=== PATIENT | female | born 1955 | race Caucasian/White ===

== ENCOUNTER 2019-12-22 00:20 | Outpatient (CLI) | payer OTHER, SELFPAY ==
[2019-12-22 18:11] LABS: SARS-CoV-2 RNA PCR Negative
== END 2019-12-22 00:21 | disposition home or self-care (01) ==
LOC: ANHCOVIDDT 00:20
PROVIDERS: Visit Provider Internal Medicine Cardiovascular Disease
DX: Z01.812 Encounter for preprocedural laboratory examination (principal); Z20.828 Contact with and (suspected) exposure to other viral communicable diseases
CPT/HCPCS: 87635; C9803; U0003

== ENCOUNTER 2019-12-24 05:26 | Day surgery (SDC) | payer OTHER, SELFPAY ==
[2019-12-23 17:43] VITALS: BMI 34.9
[2019-12-24] VITALS (9 sets, daily range): BP systolic 123–163; BP diastolic 71–90; PULSE 70–88; RESP 13–19; TEMP 36.6; O2SAT 93–98
--- NOTE | 2019-12-24 08:00 | SUR.PREOP ---
0730-pt presents to the [facility] for a KIM. Pt has limited Serbian skills but is able to answer all questions appropriately and denies the need for translation which was offered several times. Pt signed consent and states that she is able to comprehend and sign. Questions answered and verbalized understanding. Consent signed. PIV started. Will continue to monitor.
--- NOTE | 2019-12-24 08:56 | P.SEDATION_ITS ---
Moderate Sedation Note-Pt Data Patient Data Diagnosis: History of TIA, intracardiac shunt/PFO Present Complaint: None Procedure to be performed/Plan: Transesophageal echocardiogram Allergies Allergy/AdvReac Type Severity Reaction Status Date / Time No Known Allergies Allergy Unverified 12/23/19 17:26 Home Medications Medication Instructions Recorded Confirmed Type aspirin [Adult Low Dose Aspirin] 81 mg PO DAILY 12/23/19 12/23/19 History atorvastatin 40 mg PO DAILY 12/23/19 12/23/19 History clopidogrel 75 mg PO DAILY 12/23/19 12/23/19 History fluticasone propionate 1 spray INTRANASAL DAILY 12/23/19 12/23/19 History multivitamin 1 cap PO DAILY 12/23/19 12/23/19 History sertraline 50 mg PO DAILY 12/23/19 12/23/19 History Current Medications: Aspirin 81 mg daily Plavix 75 mg daily Atorvastatin 40 mg daily Sertraline 50 mg daily Sedation/Anesthesia: No previous sedation/anesthesia problems (including family history). [facility] Past Medical History Medical History Dyslipidemia TIA (transient ischemic attack) Family History Family History Father Diabetes mellitus Hypertension Patient's father is in good health Sibling Diabetes mellitus Patient's sister is in good health Patient's brother is in good health Family history of cardiovascular disease Mother Patient's mother is in good health Other Family history of heart disease in male family member before age 55 Social History Social History Smoking status: Never smoker Alcohol intake: never Gender identity (if verbalized by the patient): Female Mod Sed Physical Exam Physical Exam Pre Procedural Exam: Normal: Appearance, Eyes, Ears, Nose, Neck (Supple, normal range of motion), Throat (Posterior hypopharynx clear, nonerythematous), Airway (Normal anatomy, no obstruction), Lungs (Clear to auscultation bilaterally), Heart Size, Heart Rate, Heart Rhythm, Neuro Exam, Abdomen, Kidneys, Extremities and Skin Hours since solid foods: 12 Hours since liquid intake: 12 Internal Medicine - PN: Obj Da Vital Signs Vital Signs: Vital Signs - 24 hr 06/19/20 07:55 Temperature 36.6 C Pulse Rate 75 Respiratory Rate 14 Blood Pressure 139/90 Pulse Oximetry 98 ASA Classification/Sedation ASA Classification/Sedation ASA Class: III Emergent: No Risks: Risks, benefits and alternatives explained and patient/family accepted plan for sedation. Patient re-evaluated immediately prior to sedation.
--- NOTE | 2019-12-24 08:56 | WPDHPUPDATE1 ---
History and Physical Update Update Date/Time: 12/24/19 08:56 History and Physical has been reviewed, including an updated exam of the patient. There are NO changes in the patient's condition. Risks, benefits, and alternatives have been discussed and questions answered. Patient agrees to proceed with procedure.
--- NOTE | 2019-12-24 09:26 | WPDTEECHO ---
KIM TransEsophageal Echocardiogram Date of procedure: 12/24/19 Procedure Type: Transesophageal echocardiogram Diagnosis: Recurrent TIA, PFO/ASD Indications: Recurrent TIA Image Quality: Good Findings: Brief history present illness: Patient is a pleasant 64-year-old female with a history of dyslipidemia and recurrent episodes transient altered mental status thought to be secondary to TIA without documented CVA referred for transesophageal echocardiogram for further evaluation for suspicion for PFO/ASD on 2D echocardiogram. There is no documented history of atrial fibrillation and/or atrial flutter. Procedure in detail: After verbal and written informed consent was obtained the patient risks, benefits, and alternatives explained in detail the patient agreed to proceed with the plan of care as outlined above. The patient was evaluated at bedside in the [facility] procedure room. The posterior oropharynx, neck, and jaw angle all within normal limits on examination. Lungs were clear to auscultation. See pre-sedation note for further details The patient was then placed in the appropriate 30 to 45 degree angle supine position at a slight left lateral decubitus position. Patient was monitored throughout the study with telemetry, oxygen saturation, end-tidal CO2 monitoring, blood pressure, heart rate, and respirations. The posterior hypopharynx was then locally anesthetized using repeated administration of Hurricaine spray as well as gargled viscous lidocaine. After local anesthetic of the posterior hypopharynx was achieved and the oral bite block placed, moderate sedation was administered. After confirmation of adequate moderate sedation, the transesophageal echocardiogram probe was advanced through the oral bite block into the posterior hypopharynx and into the esophagus easily and without complication. Multiple, multiplanar echocardiographic images were obtained in multiple standard re- projections. Pulsed wave, continuous-wave, and color-flow Doppler were utilized in conjunction with this study. At the conclusion of the study, the transesophageal echocardiogram probe was removed easily and without complication. The patient tolerated the procedure well without difficulty. Patient was in sinus rhythm throughout the study. Moderate Sedation/Anesthesia administration: Patient reports no prior problems with sedation/anesthesia. Please see pre-sedation noted for physical examination documentation. As noted above, after adequate local anesthesia of the posterior hypopharynx was achieved, a total of 2 mg intravenous Versed and a total of 50 mcg intravenous Fentanyl in multiple divided doses was administered for moderate sedation. Sedation start time was 0905 and end time was 0924 for a total intra-service/procedure face-face time of 19 minutes. Sedation was administered by a qualified/certified observer Chapin Napoles RN under my supervision with intra-procedure [id number] observation and management throughout the entirety of the procedure. There were no other issues or complications and patient tolerated the procedure well. See post-anesthesia documentation. Findings: Left ventricular size and systolic function within normal limits without wall motion abnormalities with ejection fraction of 60%. Right ventricular size and systolic function within normal limits. There is mild biatrial enlargement. Interatrial septum is thin with aneurysmal motion with evidence of left to right shunt with color-flow Doppler and confirming bidirectional shunt with immediate bubble crossing with injection of agitated saline without Valsalva. Mitral valve is anatomically normal with preserved leaflet excursion and mild regurgitation. There is a very small, mobile, thin/filamentous echodensity arising from MV leaflet consistent with torn minor chordae. The tricuspid valve is anatomically normal with normal leaflet excursion with mild regurgitation identified. No mobile elements identified
--- NOTE | 2019-12-24 09:26 | SUR.OPER ---
0924-please see MOD SED sheet for medications given. Thank you!
--- NOTE | 2019-12-24 10:59 | SUR.PHASEII ---
1040-pt given D/C orders and instructions. Questions answered and verbalized understanding. AOx4. PIV removed intact. Taken via wheelchair to waiting vehicle. No distress noted or verbalized at time of departure.
== END 2019-12-24 10:39 | disposition home or self-care (01) ==
PROVIDERS: PCP Family Medicine; Visit Provider Internal Medicine Cardiovascular Disease
PROC: (CPT 93312; principal; 2019-12-24 08:30)
DX: G45.9 Transient cerebral ischemic attack, unspecified (principal); Q21.1 Atrial septal defect; E78.5 Hyperlipidemia, unspecified; Z79.82 Long term (current) use of aspirin; Z79.02 Long term (current) use of antithrombotics/antiplatelets
CPT/HCPCS: 93312; 93320; 93325; J2250; J3010; J7040

== ENCOUNTER 2020-01-10 13:28 | Outpatient (CLI) | payer OTHER, SELFPAY ==
--- NOTE | ~2020-01-10 | MR_ITS ---
EXAMINATION: MR brain/brain stem wo con DATE: 01/10/2020 14:25 INDICATION: Transient cerebral ischemic attack, unspecified. TECHNIQUE: Magnetic resonance imaging (MRI) of the brain and brainstem was performed without intraven ous contrast. Sequences included sagittal and axial T1-weighted FSE, axial diffusion-weighted FS EPI, axial T2*-weighted GRE, axial T2-weighted FLAIR Propeller, and axial T2-weighted Propeller. Apparent diffusion coefficient (ADC) maps were created. COMPARISON: Brain MRI 05/21/2016 FINDINGS: There are scattered areas of nonspecific increased T2-weighted signal intensity in the cere bral white matter, which is within normal limits for the patient's age. There are small old infarcts in the cerebellum bilaterally. There are old infarcts involving the left caudate nucleus. There is no intracranial hemorrhage, acute infarction, or abnormal intracranial mass lesion. The ventricles are normal in size. The orbits are normal. There is mild mucosal thickening in the paranasal sinuses. The mastoid air cells are normal. IMPRESSION: 1. 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 Reviewed, dictated and finalized at location A.
== END 2020-01-10 13:29 | disposition home or self-care (01) ==
PROVIDERS: PCP Family Medicine; Visit Provider Family Medicine
DX: G45.9 Transient cerebral ischemic attack, unspecified (principal); Q21.1 Atrial septal defect
CPT/HCPCS: 70551

== ENCOUNTER → 2021-11-09 10:43 | Outpatient (CLI) | payer OTHER, SELFPAY ==
--- NOTE | ~2021-11-09 | DEXA_ITS ---
Bone Density Report Name: ELIAS SNYDRE Age: 66 Sex: Female Ethnicity: Date of : 1955 Indication: postmenopausal; screening for osteoporosis; Referring Provider: KENDALL SUTHERLAND Study: Bone densitometry was performed. Exam Date: November 09, 2021 Accession number: [id number] Bone Density: Region BMD T-score Z-score Classification AP Spine (L1-L4) 0.883 -1.5 0.2 Osteopenia Femoral Neck (Left) 0.825 -0.2 1.0 Normal Total Hip (Left) 1.065 1.0 1.8 Normal Femoral Neck (Right) 0.816 -0.3 0.9 Normal Total Hip (Right) 1.030 0.7 1.6 Normal Total Hip Mean 1.048 0.9 1.7 Normal World Health Organization criteria for BMD impression classify patients as: Normal (T-score at or above -1.0), Osteopenia (T-score between -1.0 and -2.5), or Osteoporosis (T-score at or below -2.5). 10-year Fracture Risk(1): Major Osteoporotic Fracture 3.5% Hip Fracture 0.1% Reported Risk Factors: [place] (), Neck BMD=0.816, BMI=35.7 (1) FRAX(R) Version 3.08. Fracture probability calculated for an untreated patient. Fracture probability may be lower if the patient has received treatment. Clinical Information Provided by Patient: Has used the following medications: Vitamin D Patient maximum height was 68.0 Menopause Age: 56 No regular weight bearing exercise Onset of menses at age 15 Number of children 4 Impression: The patient has low bone mass, based on the Total Spine T-score. The patient has an estimated ten-year risk of hip fracture of 0.1% and an estimated ten-year risk of major fracture of 3.5%, based on the WHO FRAX algorithm. Discussion: BONE DENSITY IS LOW AT ONE OR MORE SKELETAL SITES. This patient's lowest T-score is low at one or more skeletal sites. It meets the World Health Organization's (WHO) criteria for ?low bone mass? (T-score between -1.0 and -2.5). The patient's 10-year risk of fracture as calculated by FRAX is less than the threshold where pharmacological therapy is recommended by the National Osteoporosis Foundation (NOF). However, all treatment decisions require clinical judgment and consideration of individual patient factors, including patient preferences, comorbidities, previous drug use, risk factors not captured in the FRAX model (e.g., frailty, falls, vitamin D deficiency, increased bone turnover, interval significant decline in bone density) and possible under or overestimation of fracture risk by FRAX. The patient should follow a healthful lifestyle (good nutrition with adequate calcium and vitamin D, and appropriate weight-bearing exercise). Follow-Up: Consider repeating this study in 2 to 3 years to reassess this patient's status, or sooner if there is some new clinical indication. Reported by: ZEINAB on 11/09/2021 11:23:00 AM.
--- NOTE | ~2021-11-09 | MM_ITS ---
EXAMINATION: MM screening jacky BI w donny HISTORY: Screening mammogram TECHNIQUE: Craniocaudal and mediolateral oblique 3-D tomosynthesis images were obtained and synthetic 2-D images were generated. CAD analysis was submitted and interpreted. COMPARISON: , 05/23/2015, 05/19/2014 bilateral screening mammogram examinations BREAST PARENCHYMAL COMPOSITION: There are scattered areas of fibroglandular density. FINDINGS: Scattered bilateral benign calcifications. Small area of fat necrosis in the posterior outer mid right breast. There is no evidence of suspiciou s mass, calcification, or architectural distortion to suggest malignancy in either breast. There has been no suspicious interval change. IMPRESSION: 1. No mammographic evidence of malignancy. 2. Recommend routine screening mammography in one year. BI-RADS Category 2: Benign finding(s). Reviewed, dictated and finalized at location A.
== END ==
PROVIDERS: PCP Family Medicine; Visit Provider Family Medicine
DX: Z12.31 Encounter for screening mammogram for malignant neoplasm of breast (principal); Z78.0 Asymptomatic menopausal state; M85.88 Other specified disorders of bone density and structure, other site
CPT/HCPCS: 77063; 77067; 77080

== ENCOUNTER 2022-01-12 22:04 | Emergency (ER) | payer OTHER, SELFPAY ==
--- NOTE | ~2022-01-12 | XR_ITS ---
EXAMINATION: XR knee RT min 4V DATE: 01/12/2022 22:34 INDICATION: Right knee pain post injury one day prior with audible pop. TECHNIQUE: Anteroposterior, 2 oblique and crosstable lateral views of the right knee were obtained COMPARISON: None. FINDINGS: Alignment is normal. Incompletely visualized antegrade intramedullary harsha fixation at the visualized proximal right tibia with interlocking screw at the proximal metaphysis. No surrounding lucency to rosario ggest loosening or infection. No fracture. At least mild joint space narrowing in the medial and oconnell llofemoral compartments with small marginal osteophytes in all 3 compartments. Severity of joint spac e narrowing can however be underestimated on nonweightbearing imaging. Possible right knee joint effu rosalind but without evident layering lipohemarthrosis. Small enthesophyte at the proximal pole of the pa tella. Subcutaneous varicosities along the medial aspect of the proximal right calf. Soft tissues are otherwise unremarkable. IMPRESSION: 1. Possible small right knee joint effusion with no evident acute osseous abnormality. 2. Mild degenerative changes at the right knee and prior antegrade intramedullary harsha fixation at the right tibia. Reviewed, dictated and finalized at location A. IMPRESSION: 1. Possible small right knee joint effusion with no evident acute osseous abnor mality. 2. Mild degenerative changes at the right knee and prior antegrade intramedulla ry harsha fixation at the right tibia.
[2022-01-12 22:09] VITALS: BP 147/87; PULSE 85; RESP 17; TEMP 36.4; O2SAT 99
--- NOTE | 2022-01-12 22:56 | ED.LOWEXIN ---
HPI - Extremity Injury (Lower) General Chief Complaint: Extremity Injury, Lower Stated Complaint: right knee pain Time Seen by Provider: 01/12/22 22:45 History of Present Illness HPI Narrative: 66-year-old female presented to the emergency room complaining of right knee pain. Patient states last night she twisted her knee while in bed and began experiencing pain to the right side of her knee. Patient states that she is unable to ambulate due to the pain. Describes pain as a sharp stabbing pain that is worse when trying to step and when her foot is twisted from left to right. Has a history of a total knee replacement Related Data Home Medications Medication Instructions Recorded Confirmed aspirin 81 mg tablet,delayed 81 mg PO DAILY 12/23/19 01/04/22 release (Adult Low Dose Aspirin) multivitamin 1 cap PO DAILY 12/23/19 01/04/22 cholecalciferol (vitamin D3) 125 125 mcg PO DAILY 08/24/20 01/04/22 mcg (5,000 unit) capsule calcium carbonate 600 mg calcium 600 mg PO DAILY 01/04/22 01/04/22 (1,500 mg) tablet (Calcium) celecoxib 200 mg capsule (Celebrex) 200 mg PO PRN PRN Pain 01/04/22 01/04/22 Allergies Allergy/AdvReac Type Severity Reaction Status Date / Time No Known Allergies Allergy Verified 01/12/22 22:13 Review of Systems Review of Systems: CONSTITUTIONAL: Denies fever, chills, or sweats. EYES: Denies visual changes, redness, or discharge. ENT: Denies rhinorrhea, congestion, sore throat, or otalgia. CARDIOVASCULAR: Denies chest pain, palpitations, or edema. RESPIRATORY: Denies cough or dyspnea. GASTROINTESTINAL: Denies abdominal pain, nausea, vomiting, or diarrhea. GENITOURINARY: Denies dysuria or hematuria. SKIN: Denies rash or itching. MUSCULOSKELETAL: Reports right knee pain NEUROLOGIC: Denies headache, numbness, dizziness, or weakness. PSYCHIATRIC: Denies anxiety or depression. [facility] Past Medical History Medical History Dyslipidemia MDD (major depressive disorder), recurrent episode, moderate Mixed hyperlipidemia TIA (transient ischemic attack) Family History Family History Father Diabetes mellitus Hypertension Patient's father is in good health Sibling Diabetes mellitus Patient's sister is in good health Patient's brother is in good health Family history of cardiovascular disease Mother Patient's mother is in good health Other Family history of heart disease in male family member before age 55 Social History Social History Social History: Smoking status: Never smoker Second hand tobacco smoke exposure: No Alcohol intake: never Substance use: never Substance use type: does not use Additional occupation/education comments: homemaker Gender identity (if verbalized by the patient): Female Sexual Orientation (if Verbalized by the Patient): Straight or Heterosexual Spiritual care concerns: No Exam Narrative: GENERAL: Well-appearing, well-nourished, no physical limitations, and in no acute distress. HEAD: Normocephalic, atraumatic. EYES: Conjunctivae normal, PERRLA and EOMI. CHEST: Clear to auscultation. No respiratory distress. No wheezes rales or rhonchi. No tenderness. HEART: Regular rate and rhythm. No murmur heard. Normal peripheral pulses. BACK: No CVA tenderness; No cervical/thoracic/lumbar tenderness, step-offs, bony abnormality; FROM EXTREMITIES: Right knee: Tenderness to the anterior lateral aspect, with soft tissue swelling. Unable to evaluate joint laxity due to pain. Positive Irina's test. Neurovascular is intact distally, no patellar tracking, no obvious bony abnormality SKIN: Warm, dry, no rash. No noted wounds NEURO: No focal deficits. Alert and oriented x3. MAEW. CN's II-XI intact bilaterally, normal gait PSYCH: Cooperative. Normal mood and affect. Course Vital Signs
[2022-01-12] MEDS: HYDROcodone/acetaminophen (*CRX) 5-325 MG TABLET 1 TAB PO (23:02)
== END 2022-01-12 23:09 | disposition home or self-care (01) ==
LOC: ANHED 22:57
PROVIDERS: Emergency Provider Nurse Practitioner Family; PCP Family Medicine
DX: S89.91XA Unspecified injury of right lower leg, initial encounter (principal); E78.5 Hyperlipidemia, unspecified; E78.2 Mixed hyperlipidemia; Z86.73 Personal history of transient ischemic attack (TIA), and cerebral infarction without residual deficits; Z79.82 Long term (current) use of aspirin; X50.9XXA Other and unspecified overexertion or strenuous movements or postures, initial encounter
CPT/HCPCS: 73564; 99283; A9270

== ENCOUNTER 2022-03-15 00:29 | Day surgery (SDC) | payer OTHER, SELFPAY ==
[2022-01-04 15:37] VITALS: BMI 32.5
--- NOTE | 2022-01-17 15:28 | WPDANESEPPF ---
Anes - Initial Pre Proc Eval Procedure: Operation Date: 01/18/22 08:30 Proposed Procedures p Screening Colonoscopy - Kelton Butler MD Date/Time: 01/17/22 15:28 Surgeon: Kelton Butler MD Pre Op Diagnosis: neoplasm screening Patient Data Age: 66 Gender: F Height: 1.75 m Weight: 100 kg Allergies Allergy/AdvReac Type Severity Reaction Status Date / Time No Known Allergies Allergy Verified 01/15/22 07:24 Home Medications Medication Instructions Recorded Confirmed Type aspirin 81 mg tablet,delayed 81 mg PO DAILY 12/23/19 01/04/22 History release (Adult Low Dose Aspirin) multivitamin 1 cap PO DAILY 12/23/19 01/04/22 History cholecalciferol (vitamin D3) 125 125 mcg PO DAILY 08/24/20 01/04/22 History mcg (5,000 unit) capsule atorvastatin 40 mg tablet 40 mg PO DAILY #90 tabs 08/17/21 01/04/22 Rx fluticasone propionate 50 1 spray intranasal DAILY #48 grams 08/17/21 01/04/22 Rx mcg/actuation nasal spray,suspension sertraline 50 mg tablet 50 mg PO DAILY #90 tabs 08/17/21 01/04/22 Rx calcium carbonate 600 mg calcium 600 mg PO DAILY 01/04/22 01/04/22 History (1,500 mg) tablet (Calcium) celecoxib 200 mg capsule (Celebrex) 200 mg PO PRN PRN Pain 01/04/22 01/04/22 History prednisone 10 mg tablet See Rx Instructions PO DAILY 12 01/15/22 01/15/22 Rx days #30 tabs Results Review: All pre-operative results and documents have been reviewed as part of the pre-operative evaluation. [facility] Past Medical History Medical History (Updated 01/17/22 @ 15:29 by Tj Brown DO) Anxiety Depression Dyslipidemia MDD (major depressive disorder), recurrent episode, moderate Mixed hyperlipidemia TIA (transient ischemic attack) Surgical History Surgical History (Updated 01/17/22 @ 15:29 by Tj Brown DO) History of cholecystectomy Family History Family History Father Diabetes mellitus Hypertension Patient's father is in good health Sibling Diabetes mellitus Patient's sister is in good health Patient's brother is in good health Family history of cardiovascular disease Mother Patient's mother is in good health Other Family history of heart disease in male family member before age 55 Social History Social History (Updated 01/15/22 @ 07:24 by Kia Reinoso) Social History: Smoking status: Never smoker Second hand tobacco smoke exposure: No Alcohol intake: never Substance use: never Substance use type: does not use Living arrangements: with family Occupation/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 Gender identity (if verbalized by the patient): Female Sexual Orientation (if Verbalized by the Patient): Straight or Heterosexual Spiritual care concerns: No Anes - Eval Final PreProcedure Day of Procedure 01/17/22 15:28 Patient weight: obese Heart: regular rate and rhythm Lungs: clear to auscultation Airway: Mallampati scale class II Neurological: alert and oriented Last oral intake: >/= 8 hours ASA classification: III Emergent: no Anesthetic plan: proceed Anesthesia type and monitoring: general GIVS and standard monitoring Results Review: All pre-operative results and documents have been reviewed as part of the pre-operative evaluation. Informed Consent: The patient's anesthetic plan and its attendant risks and benefits were discussed with the patient/family/POA. Questions were solicited and answers provided to the satisfaction of the patient/family/POA.
--- NOTE | 2022-03-06 11:46 | PC.NURSE ---
Updated pt's daughter Isabel with new date/time and reviewed bowel prep instructions. Daughter states understanding. No changes in health history from previous pre op interview.
[2022-03-15 06:25] VITALS: BP 138/80; PULSE 84; RESP 18; TEMP 36.4; O2SAT 97; BMI 34.7
[2022-03-15] MEDS: LACTATED RINGERS 1,000 ML 150 ML IV CONT (06:35)
--- NOTE | 2022-03-15 07:22 | PM.HPGS ---
History of Present Illness History of Present Illness Consent: Risks, benefits, and alternatives have been discussed and questions answered. Patient agrees to proceed with procedure. Chief complaint: neoplasm screening Narrative: Patricia Yoo is a 66 year old female here for screening colonoscopy, last one over 10 years ago Review of Systems Constitutional: Constitutional: Denies headache(s) and Denies weakness Eyes: Eyes: Denies blurry vision ENT: Reports Normal hearing present, Denies headache(s) and Denies neck pain Cardiovascular: Cardiovascular: Denies chest pain and Denies dyspnea Respiratory: Respiratory: Denies dyspnea Gastrointestinal: Gastrointestinal: Reports no additional gastrointestinal complaints Genitourinary: Genitourinary: Denies dysuria Musculoskeletal: Musculoskeletal: Denies neck pain Integumentary/Breasts: Skin/Breast: Denies dry skin Neurologic: Reports Normal hearing present, Denies headache(s) and Denies weakness Psychiatric: Psychiatric: Denies anxiety Endocrine: Endocrine: Denies change in body appearance Hematologic/Lymphatic: Hematologic/Lymphatic: Denies easy bleeding Allergic/Immunologic: Allergic/Immunologic: Denies urticaria PMFSH Past Medical History Medical History Anxiety Depression Dyslipidemia MDD (major depressive disorder), recurrent episode, moderate Mixed hyperlipidemia TIA (transient ischemic attack) Surgical History Surgical History History of cholecystectomy Family History Family History Father Diabetes mellitus Hypertension Patient's father is in good health Sibling Diabetes mellitus Patient's sister is in good health Patient's brother is in good health Family history of cardiovascular disease Mother Patient's mother is in good health Other Family history of heart disease in male family member before age 55 Social History Social History Social History: Smoking status: Never smoker Second hand tobacco smoke exposure: No Alcohol intake: never Substance use: never Substance use type: does not use Living arrangements: with family Additional occupation/education comments: homemaker Gender identity (if verbalized by the patient): Female Sexual Orientation (if Verbalized by the Patient): Straight or Heterosexual Spiritual care concerns: No Meds Home Medications and Allergies Home Medications Medication Instructions Recorded Confirmed Type aspirin 81 mg tablet,delayed 81 mg PO DAILY 12/23/19 02/08/22 History release (Adult Low Dose Aspirin) multivitamin 1 cap PO DAILY 12/23/19 02/08/22 History cholecalciferol (vitamin D3) 125 125 mcg PO DAILY 08/24/20 02/08/22 History mcg (5,000 unit) capsule atorvastatin 40 mg tablet 40 mg PO DAILY #90 tabs 08/17/21 02/08/22 Rx fluticasone propionate 50 1 spray intranasal DAILY #48 grams 08/17/21 02/08/22 Rx mcg/actuation nasal spray,suspension sertraline 50 mg tablet 50 mg PO DAILY #90 tabs 08/17/21 02/08/22 Rx calcium carbonate 600 mg calcium 600 mg PO DAILY 01/04/22 02/08/22 History (1,500 mg) tablet (Calcium) celecoxib 200 mg capsule (Celebrex) 200 mg PO PRN PRN Pain 01/04/22 02/08/22 History Allergies Allergy/AdvReac Type Severity Reaction Status Date / Time No Known Allergies Allergy Verified 02/08/22 09:02 Vital Signs Vital Signs - 24 hr 03/15/22 06:25 Temperature 97.6 F Pulse Rate 84 Respiratory Rate 18 Blood Pressure 138/80 Pulse Oximetry 97 Oxygen Delivery Room Air Exam Const: General: comfortable and no acute distress HENMT: General nose exam: Normal nares present Eyes: General: appearance normal, both eyes and all related structures Neck: Neck: no JVD Resp: Auscultation: clear to auscultatio
--- NOTE | 2022-03-15 07:24 | WPDANESEPPF ---
Anes - Initial Pre Proc Eval Procedure: Operation Date: 03/15/22 07:30 Proposed Procedures p Screening Colonoscopy - Kelton Butler MD Date/Time: 03/15/22 07:24 Surgeon: Kelton Butler MD Pre Op Diagnosis: neoplasm screening Patient Data Age: 66 Gender: F Height: 1.75 m Weight: 106.5 kg Last Vital Signs Temp 97.6 F 03/15/22 06:25 Pulse 84 03/15/22 06:25 Resp 18 03/15/22 06:25 BP 138/80 03/15/22 06:25 Pulse Ox 97 03/15/22 06:25 O2 Del Method Room Air 03/15/22 06:25 Allergies Allergy/AdvReac Type Severity Reaction Status Date / Time No Known Allergies Allergy Verified 02/08/22 09:02 Home Medications Medication Instructions Recorded Confirmed Type aspirin 81 mg tablet,delayed 81 mg PO DAILY 12/23/19 02/08/22 History release (Adult Low Dose Aspirin) multivitamin 1 cap PO DAILY 12/23/19 02/08/22 History cholecalciferol (vitamin D3) 125 125 mcg PO DAILY 08/24/20 02/08/22 History mcg (5,000 unit) capsule atorvastatin 40 mg tablet 40 mg PO DAILY #90 tabs 08/17/21 02/08/22 Rx fluticasone propionate 50 1 spray intranasal DAILY #48 grams 08/17/21 02/08/22 Rx mcg/actuation nasal spray,suspension sertraline 50 mg tablet 50 mg PO DAILY #90 tabs 08/17/21 02/08/22 Rx calcium carbonate 600 mg calcium 600 mg PO DAILY 01/04/22 02/08/22 History (1,500 mg) tablet (Calcium) celecoxib 200 mg capsule (Celebrex) 200 mg PO PRN PRN Pain 01/04/22 02/08/22 History Patient hx anesthesia problems: none Family hx anesthesia problems: none Results Review: All pre-operative results and documents have been reviewed as part of the pre-operative evaluation. [facility] Past Medical History Medical History Anxiety Depression Dyslipidemia MDD (major depressive disorder), recurrent episode, moderate Mixed hyperlipidemia TIA (transient ischemic attack) Surgical History Surgical History History of cholecystectomy Family History Family History Father Diabetes mellitus Hypertension Patient's father is in good health Sibling Diabetes mellitus Patient's sister is in good health Patient's brother is in good health Family history of cardiovascular disease Mother Patient's mother is in good health Other Family history of heart disease in male family member before age 55 Social History Social History Social History: Smoking status: Never smoker Second hand tobacco smoke exposure: No Alcohol intake: never Substance use: never Substance use type: does not use Living arrangements: with family Additional occupation/education comments: homemaker Gender identity (if verbalized by the patient): Female Sexual Orientation (if Verbalized by the Patient): Straight or Heterosexual Spiritual care concerns: No Anes - Eval Final PreProcedure Day of Procedure 03/15/22 07:24 Patient weight: obese Heart: regular rate and rhythm Lungs: clear to auscultation Airway: Mallampati scale class II Neurological: alert and oriented Last oral intake: >/= 8 hours ASA classification: III Emergent: no Anesthetic plan: proceed Anesthesia type and monitoring: general GIVS and standard monitoring Results Review: All pre-operative results and documents have been reviewed as part of the pre-operative evaluation. Informed Consent: The patient's anesthetic plan and its attendant risks and benefits were discussed with the patient/family/POA. Questions were solicited and answers provided to the satisfaction of the patient/family/POA.
[2022-03-15 07:46] VITALS: BP 136/80; PULSE 76; RESP 21; O2SAT 94
[2022-03-15 07:56] VITALS: BP 128/69; PULSE 77; RESP 15; O2SAT 96
[2022-03-15 08:06] VITALS: BP 142/89; PULSE 69; RESP 17; O2SAT 97
== END 2022-03-15 08:16 | disposition home or self-care (01) ==
PROVIDERS: PCP Family Medicine; Visit Provider Internal Medicine Gastroenterology
PROC: 0DJD8ZZ Inspection of Lower Intestinal Tract, Via Natural or Artificial Opening Endoscopic (ICD-10-PCS; CPT 45378; principal; 2022-03-15 07:30)
DX: Z12.11 Encounter for screening for malignant neoplasm of colon (principal); K64.8 Other hemorrhoids; E78.5 Hyperlipidemia, unspecified; F41.9 Anxiety disorder, unspecified; F32.9 Major depressive disorder, single episode, unspecified; Z86.73 Personal history of transient ischemic attack (TIA), and cerebral infarction without residual deficits; Z90.49 Acquired absence of other specified parts of digestive tract
CPT/HCPCS: 45378; J2704; J7120

== ENCOUNTER 2023-01-03 11:38 | Outpatient (CLI) | payer MEDICARE, OTHER, SELFPAY ==
--- NOTE | ~2023-01-03 | MM_ITS ---
EXAMINATION: MM screening jacky BI w donny HISTORY: Screening mammogram TECHNIQUE: Craniocaudal and mediolateral oblique 3-D tomosynthesis images were obtained and synthetic 2-D images were generated. CAD analysis was submitted and interpreted. COMPARISON: 11/09/2021, 08/22/2018, 05/23/2015 bilateral screening mammogram examinations BREAST PARENCHYMAL COMPOSITION: There are scattered areas of fibroglandular density. FINDINGS: Again noted is a small area of fat necrosis in the posterior outer mid right breast and the re are scattered bilateral benign calcifications. There is no evidence of suspicious mass, calcificat ion, or architectural distortion to suggest malignancy in either breast. There has been no suspicious interval change. IMPRESSION: 1. No mammographic evidence of malignancy. 2. Recommend routine screening mammography in one year. BI-RADS Category 2: Benign finding(s). Reviewed, dictated and finalized at location A.
== END 2023-01-03 11:39 | disposition home or self-care (01) ==
LOC: CHSIMG 11:42
PROVIDERS: PCP Family Medicine; Visit Provider Physician Assistant
DX: Z12.31 Encounter for screening mammogram for malignant neoplasm of breast (principal)
CPT/HCPCS: 77063; 77067

== ENCOUNTER 2024-08-27 11:37 | Outpatient (CLI) | payer MEDICARE, SELFPAY ==
--- NOTE | ~2024-08-27 | DEXA_ITS ---
Bone Density Report Name: ELIAS SNYDER Age: 69 Sex: Female Ethnicity: White Date of : 1955 Indication: postmenopausal; screening for osteoporosis; height loss; prior fracture; Referring Provider: KOKO, KENDALL Dinh Study: Bone densitometry was performed. Exam Date: August 27, 2024 Accession number: [id number] Bone Density: Region BMD T-score Z-score Classification AP Spine(L1-L4) 0.936 -1.0 0.9 Normal Femoral Neck (Left) 0.814 -0.3 1.3 Normal Total Hip (Left) 1.023 0.7 2.0 Normal Femoral Neck (Right) 0.797 -0.5 1.2 Normal Total Hip (Right) 0.965 0.2 1.5 Normal Femoral Neck Mean 0.805 -0.4 1.2 Normal Total Hip Mean 0.994 0.4 1.8 Normal World Health Organization criteria for BMD impression classify patients as: Normal (T-score at or above -1.0), Osteopenia (T-score between -1.0 and -2.5), or Osteoporosis (T-score at or below -2.5). Clinical Information Provided by Patient: Has had a low trauma fracture Has used the following medications: Vitamin D, Calcium Patient maximum height was 69 Menopause Age: 52 No regular weight bearing exercise Onset of menses at age 15 Number of children 4 Impression: The patient has normal bone mass. The patient has risk factors, including: previous fracture. Discussion: BONE DENSITY IS ABOVE THE MINIMUM DESIRABLE LEVEL AT ALL SKELETAL SITES TESTED. This patient?s bone mineral density is above the minimum desirable level (T-score -1.0 or better) at all sites measured. The patient should follow a healthful lifestyle (good nutrition with adequate calcium and vitamin D, and appropriate weight-bearing exercise). Follow-Up: Consider repeating this study in 5 years or sooner if there is some new clinical indication. Reported by: BLANCA on 08/27/2024 12:07:00 PM. Reviewed, dictated and finalized at location Cedric WILLIS
--- NOTE | ~2024-08-27 | MM_ITS ---
EXAMINATION: MM screening jacky BI w donny HISTORY: Screening TECHNIQUE: Craniocaudal and mediolateral oblique 3-D tomosynthesis images were obtained and synthetic 2-D images were generated. CAD analysis was submitted and interpreted. COMPARISON: Comparison to multiple prior studies sequentially, with oldest reviewed study dated 05/07. BREAST PARENCHYMAL COMPOSITION: Not dense: There are scattered areas of fibroglandular density. FINDINGS: There is no evidence of suspicious mass, calcification, or architectural distortion to sugg est malignancy in either breast. There has been no suspicious interval change. IMPRESSION: 1. No mammographic evidence of malignancy. 2. Recommend routine screening mammography in one year. BI-RADS Category 1: Negative Reviewed, dictated and finalized at location L. OMER ASSISTANT
--- OUTSIDE RECORDS SUMMARY | 2024-08-27 11:59 | XMS_ITS | Clinical Summary ---
Author Organization [facility] [address] [facility] [address] [place] [address] Care Team Providers Care Single Needle Operator Name Role Phone Dary Baig MD Primary Care Provider Allergies No known active allergies Medications sertraline (ZOLOFT) 50 mg tablet Take 1 tablet (50 mg total) by mouth daily Active multivitamin capsule Take 1 capsule by mouth daily Active atorvastatin (LIPITOR) 40 mg tablet Take 1 tablet (40 mg total) by mouth daily. 30 tablet 11 8 Active cholecalciferol (VITAMIN D-3) 5,000 unit capsule Take 1 capsule (5,000 Units total) by mouth daily Active UNABLE TO FIND Celtcoxib Activ e aspirin 81 mg enteric coated tablet Take 1 tablet (81 mg total) by mouth daily Active Active Problems Problem Noted Date Diagnosed Date H/O TIA (transient ischemic attack) and stroke 0 08/08/2022 Mixed hyperlipidemia 10/15/2021 Pulmonary HTN 10/15/2021 Status post device closure of ASD 03/28/2020 ASD (atrial septal defect) 01/04/2020 Obesity due to excess calories with serious savana rbidity 12/09/2017 Resolved Problems Problem Noted Date Diagnosed Date Resolved Date Status post device closure of ASD 09/02/2023 09/02/2023 TIA (transient ischemic attack) 12/09/2017 08/08/2022 Dyslipidemia 12/09/2017 10/15/2021 Surgical History Surgery Date Site/Laterality Comments CHOLECYSTECTOMY FOOT SURGERY TUBAL LIGATION BREAST EXCISIONAL BIOPSY Right Medical History Medical History Date Comments Dyslipidemia TIA (transient ischemic attack) ASD (atrial septal defect) Hyperlipidemia Stroke (HCC) Family History Medical History Relation Name Comments No Known Problems Father No Known Problems Mother Relation Name Status Comments Father Mother Social History Tobacco Use Types Packs/Day Years Used Date Smoking Tobacco: Never Smokeless Tobacco: Never Alcohol Use Standard Drinks/Week Comments No 0 (1 standard drink = 0.6 oz pur e alcohol) Personal Safety Answer Date Recorded Getting School Help Needed Not on file 08/19 Comments No Sex and Gender Information Value Date Recorded Sex Assigned at Not on file Legal Sex Female 3:58 AM GERIATRICIAN Gender Identity Not on file Sexual Orientation Not on file Obstetrics History Last Filed Vital Signs Vital Sign Reading Time Taken Comments Blood Pressure 112/76 09/02/2023 2:04 PM GERIATRICIAN Pulse 68 09/02/2023 2:04 PM GERIATRICIAN Temperature 37 C (98.6 F) 05/08/2020 11:29 AM GERIATRICIAN Respiratory Rate 24 05/08/2020 2:30 PM GERIATRICIAN Oxygen Saturation 98% 09/02/2023 2:04 PM GERIATRICIAN Inhaled Oxygen Concentration - - Weight 103 kg (227 lb) 09/02/2023 2:04 PM GERIATRICIAN Height 172.7 cm (5' 8 ) 09/02/2023 2:04 PM GERIATRICIAN Body Mass Index 34.52 09/02/2023 2:04 PM GERIATRICIAN Plan of Treatment Health Maintenance Due Date Last Done Comments Breast Cancer Screening-Mammogram 1955 Colon Cancer Screening-Colonoscopy 1955 Depression Screening 1955 Fall Risk Assessment 1955 Hepatitis C Screening 1955 Osteoporosis Screening-Bone Density Scan 1955 DTaP/Tdap/Td Vaccine (1 - Tdap) 1968 Hepatitis B Screening 1975 Zoster Vaccine (1 of 2) 2007 Pneumococcal vaccine 65+ (1 of 1 - PCV) 2022 Well Visit 65+ 2022 Influenza Vaccine (#1) 2024 04/01/2020 Medical Devices Implanted Type Area Music Director Device Identifier Shelf Expiration Date Model / Serial / Lot [employer] [id number] Amplatzer 30mm 2 Disk Multifenestrated Cribriform Self Expanding Latex Free - [id number] Implanted:Qty: 1 on 01/21/2020 by Geremias Tapia MD PhD at [facility] Other - see comments [employer] 12/05/2023 9-ASD-MF- 030 / / [id number] Right Foot Hardware Foot Insurance [facility] Address: [address] [address] [place] [address] MEDICARE RAILROAD [facility] Address: [address] [address] [place] [address] Advance Directives For more information, please contact: [phone] * Full Code (Latest Code Status on File) Date Activated Date Inactivated Comments 01/21/2020 9:49 AM 01/21/2020 7:50 PM Care Teams Single Needle Operator Relationship Specialty Start Date End Date Dary Baig MD [address] [facility] [address] [place] [address] PCP - General Family Medicine 10/18/17
--- OUTSIDE RECORDS SUMMARY | 2024-08-27 11:59 | XMS_ITS | Referral Summary ---
Author Organization [facility] [address] [place] [address] Care Team Providers Care Hydraulic Punch Press Operator Name Role Phone Dary Baig MD [...] ischemic attack) 12/09/2017 08/08/2022 Dyslipidemia 12/09/2017 10/15/2021 Social History Tobacco Use Types Packs/Day Years [...] on file Legal Sex Female 3:58 AM FOOD CRITIC Gender Identity Not on file Sexual Orientation Not on file Last Filed Vital Signs Vital Sign Reading Time Taken Comments Blood Pressure 112/76 09/02/2023 2:04 PM FOOD CRITIC Pulse 68 09/02/2023 2:04 PM FOOD CRITIC Temperature 37 C (98.6 F) 05/08/2020 11:29 AM FOOD CRITIC Respiratory Rate 24 05/08/2020 2:30 PM FOOD CRITIC Oxygen Saturation 98% 09/02/2023 2:04 PM FOOD CRITIC Inhaled Oxygen Concentration - - Weight 103 kg (227 lb) 09/02/2023 2:04 PM FOOD CRITIC Height 172.7 cm (5' 8 ) 09/02/2023 2:04 PM FOOD CRITIC Body Mass Index 34.52 09/02/2023 2:04 PM FOOD CRITIC Plan of Treatment Not on file Medical Devices Implanted Type Area Training Manager Device Identifier Shelf Expiration Date Model / Serial / Lot [employer] [id number] Amplatzer 30mm 2 Disk Multifenestrated Cribriform Self Expanding Latex Free - [id number] Implanted:Qty: 1 on 01/21/2020 by Geremias Tapia MD PhD at [facility] Other - see comments [employer] 12/05/2023 9-ASD-MF- 030 / / [id number] Right Foot Hardware Foot Insurance CHOICE PLUS MEDICARE RAILROAD [facility] Address: [address] [address] [place] [address] [facility] CHOICE PLUS Advance Directives For more information, please contact: [phone] * Full Code (Latest Code Status on File) Date Activated Date Inactivated Comments 01/21/2020 9:49 AM 01/21/2020 7:50 PM Care Teams Hydraulic Punch Press Operator Relationship Specialty Start Date End Date Dary Baig MD [address] [facility] [address] [place] [address] PCP - General Family Medicine 10/18/17
== END 2024-08-27 11:38 | disposition home or self-care (01) ==
PROVIDERS: PCP Family Medicine; Visit Provider Family Medicine
DX: Z12.31 Encounter for screening mammogram for malignant neoplasm of breast (principal); Z78.0 Asymptomatic menopausal state
CPT/HCPCS: 77063; 77067; 77080